=== PATIENT | female | born 1945 | race Caucasian/White ===

== ENCOUNTER 2017-01-12 21:00 | Inpatient (IN) | payer OTHER, MEDICARE ==
[~2017-01-12] VITALS: Ht 170.2 cm; Wt 72.1 kg
[2017-01-12 22:13] LABS: BASOPHIL % 0.2 % (0-2); PLATELET COUNT 168 x10^3mcL (130-400); RED CELL DISTRIBUTION WIDTH 14.3 % (11.5-14.5)
[2017-01-12 22:26] LABS: CALCIUM 8.9 mg/dL (8.5-10.1); CHLORIDE SERUM 99 mmol/L (98-107); CREATININE SERUM 0.5 mg/dL (0.6-1.0); GLUCOSE SERUM 95 mg/dL (74-106); POTASSIUM SERUM 4.3 mmol/L (3.5-5.1); SODIUM SERUM 144 mmol/L (136-145)
[2017-01-12 22:28] LABS: CARBON DIOXIDE > 45.0 mmol/L (21-32)
[2017-01-12 22:30] LABS: ALKALINE PHOSPHATASE 88 U/L (46-116); ALT/SGPT 30 U/L (14-59); AST/SGOT 23 U/L (15-37); BILIRUBIN TOTAL 0.3 mg/dL (0.20-1.00); TOTAL PROTEIN, SERUM 6.6 g/dL (6.4-8.2)
[2017-01-12 22:32] LABS: ALBUMIN 3.1 g/dL (3.4-5.0)
[2017-01-12 22:43] LABS: CK-MB 2.4 ng/mL (0-3.6)
[2017-01-12] MEDS ORDERED: LEVOTHYROXIN0.025 M2 (23:57)
[2017-01-12] MEDS ORDERED: CITALOPRAM10 M1 (23:58)
[2017-01-12] MEDS ORDERED: EPZICOM1 TAB (23:58)
[2017-01-12] MEDS ORDERED: DILTIAZEM HCL120 M2 (23:58)
[2017-01-12] MEDS ORDERED: ALBUTEROL1.25 MG/3 (23:58)
[2017-01-13 01:07] LABS: MAGNESIUM 1.7 mg/dL (1.8-2.4); PHOSPHOROUS 3.7 mg/dL (2.5-4.9)
[2017-01-13 01:10] LABS: CHOLESTEROL/HDL RATIO 2.4
[2017-01-13 01:13] LABS: T3 TOTAL 0.81 ng/mL
[2017-01-13 01:21] LABS: FREE T4 1.13 ng/dL (0.76-1.46); FREE THYROXINE INDEX 2.9 ug/dL (1.4-4.5); T4(THYROXINE) 9.1 ug/dL (4.7-13.3)
[2017-01-13 02:18] VITALS: BP 116/71
[2017-01-13 05:51] VITALS: BP 123/53
[2017-01-13 07:10] LABS: BASOPHIL % 0.3 % (0-2); PLATELET COUNT 178 x10^3mcL (130-400); RED CELL DISTRIBUTION WIDTH 14.3 % (11.5-14.5)
[2017-01-13 07:30] LABS: CALCIUM 8.7 mg/dL (8.5-10.1); CHLORIDE SERUM 99 mmol/L (98-107); CREATININE SERUM 0.5 mg/dL (0.6-1.0); GLUCOSE SERUM 124 mg/dL (74-106); MAGNESIUM 1.5 mg/dL (1.8-2.4); PHOSPHOROUS 3.4 mg/dL (2.5-4.9); POTASSIUM SERUM 4.6 mmol/L (3.5-5.1); SODIUM SERUM 143 mmol/L (136-145)
[2017-01-13 09:40] VITALS: BP 152/71
[2017-01-13 10:41] LABS: CARBON DIOXIDE 42.5 mmol/L (21-32)
[2017-01-13 13:34] VITALS: BP 153/56
[2017-01-13 17:13] VITALS: BP 128/50
[2017-01-13 22:32] VITALS: BP 131/45
[2017-01-14 06:01] VITALS: BP 126/62
[2017-01-14 07:09] LABS: BASOPHIL % 0.2 % (0-2); PLATELET COUNT 165 x10^3mcL (130-400)
[2017-01-14 07:10] LABS: RED CELL DISTRIBUTION WIDTH 14.6 % (11.5-14.5)
[2017-01-14 07:25] LABS: CALCIUM 8.8 mg/dL (8.5-10.1); CHLORIDE SERUM 99 mmol/L (98-107); CREATININE SERUM 0.5 mg/dL (0.6-1.0); GLUCOSE SERUM 115 mg/dL (74-106); MAGNESIUM 1.8 mg/dL (1.8-2.4); PHOSPHOROUS 4.2 mg/dL (2.5-4.9); SODIUM SERUM 141 mmol/L (136-145)
[2017-01-14 07:32] LABS: CARBON DIOXIDE 41.8 mmol/L (21-32)
[2017-01-14 09:30] VITALS: BP 118/51
[2017-01-14 20:41] VITALS: BP 132/55
[2017-01-14 22:23] VITALS: BP 124/48
[2017-01-15 05:28] VITALS: BP 123/49
[2017-01-15 06:43] LABS: PLATELET COUNT 169 x10^3mcL (130-400)
[2017-01-15 06:51] LABS: BASOPHIL % 0 % (0-2); RED CELL DISTRIBUTION WIDTH 14.9 % (11.5-14.5)
[2017-01-15 06:52] LABS: CALCIUM 8.7 mg/dL (8.5-10.1); CHLORIDE SERUM 100 mmol/L (98-107); CREATININE SERUM 0.5 mg/dL (0.6-1.0); GLUCOSE SERUM 121 mg/dL (74-106); MAGNESIUM 2.3 mg/dL (1.8-2.4); PHOSPHOROUS 4.2 mg/dL (2.5-4.9); SODIUM SERUM 141 mmol/L (136-145)
[2017-01-15 07:24] LABS: CARBON DIOXIDE 42.8 mmol/L (21-32)
[2017-01-15 10:20] VITALS: BP 125/55
[2017-01-15 13:23] VITALS: Ht 170.2 cm; Wt 72.1 kg
[2017-01-15 15:00] VITALS: BP 143/66
[2017-01-15 17:10] VITALS: BP 124/59
[2017-01-15 19:45] VITALS: BP 162/77
[2017-01-15 23:09] VITALS: BP 152/83
[2017-01-16 03:12] VITALS: BP 139/71
[2017-01-16 05:45] LABS: BASOPHIL % 0.1 % (0-2); PLATELET COUNT 175 x10^3mcL (130-400)
[2017-01-16 05:48] LABS: RED CELL DISTRIBUTION WIDTH 14.6 % (11.5-14.5)
[2017-01-16 05:57] LABS: CALCIUM 8.4 mg/dL (8.5-10.1); CHLORIDE SERUM 101 mmol/L (98-107); CREATININE SERUM 0.5 mg/dL (0.6-1.0); GLUCOSE SERUM 98 mg/dL (74-106); MAGNESIUM 1.8 mg/dL (1.8-2.4); PHOSPHOROUS 3.2 mg/dL (2.5-4.9); POTASSIUM SERUM 4.6 mmol/L (3.5-5.1); SODIUM SERUM 140 mmol/L (136-145)
[2017-01-16 06:00] LABS: CARBON DIOXIDE 40.6 mmol/L (21-32)
[2017-01-16 07:45] VITALS: BP 131/89
[2017-01-16 11:15] VITALS: BP 130/70
[2017-01-16 16:45] VITALS: BP 110/74
[2017-01-16 17:30] VITALS: BP 1107/74
[2017-01-16] MEDS ORDERED: VIS50 PO (18:51)
[2017-01-16] MEDS ORDERED: LEVAQUIN750 MG PO (18:51)
[2017-01-16 19:00] VITALS: BP 119/56
== END 2017-01-16 20:15 | disposition hospice, home (50) | DRG 91 ==
LOC: ED 21:00 → DU 23:47 → IC 23:47 → DU 01-13 01:34 → IC 01-15 19:30
PROVIDERS: Emergency Medicine; Family Medicine; ADMIT Family Medicine
DX: G92 Toxic encephalopathy (principal); J96.00 Acute respiratory failure, unspecified whether with hypoxia or hypercapnia; N17.0 Acute kidney failure with tubular necrosis; J44.1 Chronic obstructive pulmonary disease with (acute) exacerbation; E44.0 Moderate protein-calorie malnutrition; F41.1 Generalized anxiety disorder; E83.42 Hypomagnesemia; D64.9 Anemia, unspecified; E03.9 Hypothyroidism, unspecified; M19.90 Unspecified osteoarthritis, unspecified site; Z68.24 Body mass index [BMI] 24.0-24.9, adult; Z99.81 Dependence on supplemental oxygen; Z87.891 Personal history of nicotine dependence; Z85.72 Personal history of non-Hodgkin lymphomas; T42.4X5A Adverse effect of benzodiazepines, initial encounter
CPT/HCPCS: 36600; 83880; 84439; 94150; 97110-GP; J1956; J2060; J2920; J2930; J3475; J7030; J7613; J7620; J7626; J7644; Q0092; Q0177